=== PATIENT | male | born 1950 | race Caucasian/White ===

== ENCOUNTER 2018-10-24 11:33 | Day surgery (SDC) | payer OTHER ==
[~2018-10-24] VITALS: Ht 180.3 cm; Wt 104.1 kg
[~2018-10-24 11:33] MED LIST: ASPI81EC PO; AZIT250 PO; CETI10; CETI10 PO; DESO.25TC TOP; EZET10 PO; HYDACE5 PO; MECL25 PO; META400 PO; NAPR550 PO; OMEP20ER; POTCHL10ER PO
[2018-10-24] MEDS ORDERED: Lisinopril2.5 MG (12:51)
[2018-10-24] MEDS ORDERED: PANT40 (12:53)
[2018-10-24] MEDS ORDERED: LEVSOD75 (12:54)
[2018-10-24] MEDS ORDERED: TAMS.4ER (12:54)
[2018-10-24] MEDS ORDERED: ABAT250V (12:54)
== END 2018-10-24 14:39 | disposition home or self-care (01) ==
LOC: ORSCSDS 11:33
PROVIDERS: Internal Medicine Gastroenterology
PROC: 0DBL8ZX Excision of Transverse Colon, Via Natural or Artificial Opening Endoscopic, Diagnostic (ICD-10-PCS; principal; 2018-10-24 13:45)
PROC: 0DBM8ZX Excision of Descending Colon, Via Natural or Artificial Opening Endoscopic, Diagnostic (ICD-10-PCS; principal; 2018-10-24 13:45)
DX: Z12.11 Encounter for screening for malignant neoplasm of colon (principal); K63.5 Polyp of colon; D12.4 Benign neoplasm of descending colon; Z86.010 Personal history of colon polyps; Z85.038 Personal history of other malignant neoplasm of large intestine; I10 Essential (primary) hypertension; E03.9 Hypothyroidism, unspecified; K21.9 Gastro-esophageal reflux disease without esophagitis; D64.9 Anemia, unspecified; E78.5 Hyperlipidemia, unspecified; Z79.82 Long term (current) use of aspirin; Z79.899 Other long term (current) drug therapy
CPT/HCPCS: 88305; J2704; J7120

== ENCOUNTER 2019-10-21 13:53 | Emergency (ER) | payer OTHER ==
[~2019-10-21] VITALS: Ht 180.3 cm; Wt 106.6 kg
[~2019-10-21 13:53] MED LIST changes: +ABAT250V; +LEVSOD75; +Lisinopril2.5 MG; +PANT40; +TAMS.4ER
== END 2019-10-21 15:45 | disposition home or self-care (01) ==
LOC: ER 13:53
DX: M75.32 Calcific tendinitis of left shoulder (principal); Z91.013 Allergy to seafood; Z88.0 Allergy status to penicillin; Z79.899 Other long term (current) drug therapy; Z79.82 Long term (current) use of aspirin; Z87.891 Personal history of nicotine dependence
CPT/HCPCS: 73030; 99283-25

== ENCOUNTER 2022-06-30 12:24 | Observation (INO) | payer MEDICARE ==
[~2022-06-30] VITALS: Ht 180.3 cm; Wt 95.2 kg
[~2022-06-30 12:24] MED LIST changes: +LISI5 PO; -Lisinopril2.5 MG
[2022-06-30 17:12] LABS: BASOPHILS ABSOLUTE AUTO 0.04 K/mm3 (0.00-0.23); BASOPHILS PERCENT AUTO 1 % (0-2); EOSINOPHILS ABSOLUTE AUTO 0.09 K/mm3 (0.00-0.68); EOSINOPHILS PERCENT AUTO 1 % (0-6); Hematocrit 46.2 % (37.0-53.0); Hemoglobin 15.7 g/dL (13.5-17.5); IMMATURE GRAN ABSOLUTE AUTO 0.05 K/mm3 (0.00-0.10); IMMATURE GRAN PERCENT AUTO 1 % (0-1); LYMPHOCYTES ABSOLUTE AUTO 1.48 K/mm3 (0.84-5.20); LYMPHOCYTES PERCENT AUTO 19 % (21-46); MONOCYTES ABSOLUTE AUTO 0.56 K/mm3 (0.16-1.47); MONOCYTES PERCENT AUTO 7 % (4-13); Mean Corpuscular HGB 30.9 pg (26.0-34.0); Mean Corpuscular Volume 91 fL (80-100); Mean Platelet Volume 11.3 fL (9.1-12.4); NEUTROPHILS ABSOLUTE AUTO 5.72 K/mm3 (1.96-9.15); NEUTROPHILS PERCENT AUTO 72 % (41-73); Platelet Count 297 K/mm3 (150-400); RDW Coefficient Variation 12.7 % (11.7-14.2); RDW Standard Deviation 42.5 fL (35.1-46.3); Red Blood Cell Count 5.08 M/mm3 (4.30-5.90); White Blood Cell Count 7.94 K/mm3 (4.00-11.30)
[2022-06-30 17:23] LABS: Albumin, Blood 3.9 g/dL (3.4-5.0); Bilirubin, Total 0.6 mg/dL (0.1-1.0); Bun/Creatinine Ratio 25.6 (12.0-20.0); Calcium, Blood 8.8 mg/dL (8.5-10.1); Creatinine, Blood 0.66 mg/dL (0.60-1.20); Potassium, Blood 3.5 mmol/L (3.5-5.5); Total Protein, Blood 7.9 g/dL (6.4-8.2)
[2022-06-30] MEDS ORDERED: PRAV20 PO (19:07)
[2022-06-30] MEDS ORDERED: Ventolin/Prove6.7 GM INH (19:08)
[2022-06-30] MEDS ORDERED: FINA5 PO (19:08)
--- NOTE | 2022-07-01 08:59 | NUR ---
NEW ADMIT FROM ED. A&O X 4. VSS. C/O PAIN 02/01. PRN 25MCG FENTANYL IV GIVEN WITH GOOD RESULT. PT NPO AT MIDNIGHT FOR SURGERY. STANDBY ASSIST TO BATHROOM. PT [place]. SPOUSE AT BEDSIDE. BED ALARM ON. WILL CONTINUE TO MONITOR.
[2022-07-01 09:16] LABS: BASOPHILS ABSOLUTE AUTO 0.03 K/mm3 (0.00-0.23); BASOPHILS PERCENT AUTO 0 % (0-2); EOSINOPHILS ABSOLUTE AUTO 0.04 K/mm3 (0.00-0.68); EOSINOPHILS PERCENT AUTO 0 % (0-6); Hematocrit 42.7 % (37.0-53.0); Hemoglobin 14.6 g/dL (13.5-17.5); IMMATURE GRAN ABSOLUTE AUTO 0.03 K/mm3 (0.00-0.10); IMMATURE GRAN PERCENT AUTO 0 % (0-1); LYMPHOCYTES ABSOLUTE AUTO 1.38 K/mm3 (0.84-5.20); LYMPHOCYTES PERCENT AUTO 13 % (21-46); MONOCYTES ABSOLUTE AUTO 1.03 K/mm3 (0.16-1.47); MONOCYTES PERCENT AUTO 10 % (4-13); Mean Corpuscular HGB 30.7 pg (26.0-34.0); Mean Corpuscular HGB Conc 34.2 g/dL (31.5-36.5); Mean Corpuscular Volume 90 fL (80-100); Mean Platelet Volume 10.5 fL (9.1-12.4); NEUTROPHILS ABSOLUTE AUTO 8.03 K/mm3 (1.96-9.15); NEUTROPHILS PERCENT AUTO 76 % (41-73); Platelet Count 265 K/mm3 (150-400); RDW Coefficient Variation 12.6 % (11.7-14.2); RDW Standard Deviation 41.8 fL (35.1-46.3); Red Blood Cell Count 4.75 M/mm3 (4.30-5.90); White Blood Cell Count 10.54 K/mm3 (4.00-11.30)
[2022-07-01 09:53] LABS: Bun/Creatinine Ratio 20.9 (12.0-20.0); Calcium, Blood 8.4 mg/dL (8.5-10.1); Creatinine, Blood 0.72 mg/dL (0.60-1.20); Potassium, Blood 3.7 mmol/L (3.5-5.5)
[2022-07-01] MEDS ORDERED: CEPH500 PO (13:26)
--- NOTE | 2022-07-01 13:43 | NUR ---
PTN TO OR THIS AM FOR AMPUTATION OF DISTAL TIP OF R INDEX FINGER. PTN HAD PROCEDURE DONE WITH NO UNTOWARD EVENT. PTN WAS ANXIOUS TO GET HIS HOME BY 2 PM, AND SOON HE RETURNED HE REMOVED HIS IV AND THE DRESSING FROM HIS RIGHT FINGER. THIS WAS RE-DRESSED TWICE, AND HE IS EDUCATED ON THE IMPORTANCE OF KEEPING IT COVERED WHILE OPEN WOUND. PTN WAS ANXIOUS TO LEAVE AND COULD NOT WAIT FOR PAPERWORK, SO WAS GIVEN TWO HAND-WRITTEN PRESCRIPTIONS FOR NORCO FOR PAIN AND BACTRIM FOR ANTIBIOTIC. ALL OTHER MEDICATIONS WERE CALLED INTO HIS [facility], AND PTN AGREED TO PICK THEM UP THERE. PTN ALSO VERBALIZED UNDERSTANDING OF TAKING HIS ANTIBIOTICS ALL THE UNTIL COMPLETE. PTN WILL FOLLOW-UP NEEDED.
== END 2022-07-01 13:22 | disposition home or self-care (01) ==
LOC: ER 12:24 → MEDS 12:25
PROVIDERS: Orthopaedic Surgery; Student in an Organized Health Care Education/Training Program; ADMIT Internal Medicine
PROC: 0X6N0Z3 Detachment at Right Index Finger, Low, Open Approach (ICD-10-PCS; principal; 2022-07-01 10:30)
DX: S68.620A Partial traumatic transphalangeal amputation of right index finger, initial encounter (principal); W31.2XXA Contact with powered woodworking and forming machines, initial encounter; E03.9 Hypothyroidism, unspecified; E78.5 Hyperlipidemia, unspecified; I10 Essential (primary) hypertension; N40.0 Benign prostatic hyperplasia without lower urinary tract symptoms; K63.5 Polyp of colon
CPT/HCPCS: 36415; 73140; 80048; 80053; 85025; 86850; 86900; 86901; 90714; 93005; 93010; 96375; A9270; G0378; J0690; J1170; J2250; J2405; J2704; J3010; J3370; J7030; J7120